=== PATIENT | male | born 1950 | race Caucasian/White ===

== ENCOUNTER → 2017-01-30 | Outpatient (CLI) | payer OTHER ==
[~2017-01-30] MED LIST: ASPIRINEC; CRESTOR; PLAVIX; TOPROL XL PO
--- NOTE | ~2017-01-30 | XA30 ---
[facility] A Service of [facility] & [facility] RADIOLOGY TEXT RESULTS PATIENT: BEN THOMPSON LOCATION: CIVR : 54 UNIT #: [id number] AGE: [address]: Anthony Carey MD SEX: M ORDER DR: [id number] [id number] [facility]. [place], [place] [address] [id number] O MR#: [id number] Acc #: [id number] NAME: BEN THOMPSON : 1950 SEX: M STUDY DATE/TIME: 01/30/2017 13:01 UNIT: [facility] ROOM: STUDY DESCRIPTION: XA Arthrocentesis Major Joint Attending Physician: Anthony Carey M.D. Referring Physician: Anthony Carey M.D. Ordering Physician: Anthony Carey M.D. Primary Care Physician: Nicolás Birmingham M.D. MEDICAL IMAGING REPORT This report is preliminary unless electronic signature is present EXAM Fluoroscopically-guided bilateral hip injections. INDICATION Bilateral hip pain. FINDINGS The procedure, risks, benefits, and alternatives to the procedure were explained patient, and signed, informed consent was obtained. He was placed supine on the angiographic table. He was prepped and draped in the usual sterile fashion. Time-out was performed as per protocol. Skin and subcutaneous tissues were anesthetized with buffered lidocaine and a 22-gauge spinal needle was advanced into the joint space. Contrast was injected which confirmed location within the joint space and I instilled a combination of lidocaine, bupivacaine and Depo-Medrol. The needle was then removed and manual pressure was applied until hemostasis was obtained. The patient had no issues with numbness in the right lower extremity. Subsequently, he was placed again supine on the angiographic table and prepped and draped in the usual sterile fashion. Skin and subcutaneous tissues of the left hip were anesthetized with buffered lidocaine and a 22-gauge spinal was advanced into the joint space. Contrast was injected which confirmed location within the joint space and I instilled a combination of lidocaine, bupivacaine and Depo-Medrol. Total fluoroscopy time for both procedures was 0.7 minutes and a total of 2 fluoroscopic images were obtained. IMPRESSION Technically successful fluoroscopically-guided bilateral hip injection as noted above. Fluoroscopy was used during the procedure and permanent images were saved. Dictated by... Jeny Cedeño M.D. [facility] A Service of [facility] RADIOLOGY TEXT RESULTS PATIENT: BEN THOMPSON LOCATION: [facility] #: [id number] : 54 UNIT #: [id number] AGE: [address]: Anthony Carey MD SEX: M ORDER DR: THIS IS AN ELECTRONICALLY VERIFIED REPORT Jeny Cedeño M.D. at 02/01/2017 12:41 PM AFF/bd TD: 01/31/2017 14:05 JOB #: [id number] MEDICAL IMAGING REPORT Page 1 of 1 COPY
== END | disposition home or self-care (01) ==
LOC: CIVR 12:27
DX: M25.552 Pain in left hip (principal); M25.551 Pain in right hip; M87.88 Other osteonecrosis, other site
CPT/HCPCS: 77002; J1030; Q9966

== ENCOUNTER → 2017-02-03 | Outpatient (CLI) | payer OTHER ==
--- NOTE | ~2017-02-03 | US128 ---
[id number] [facility] [address] [place], [place] [address] [id number] O MR#: [id number] Acc #: [id number] NAME: BEN THOMPSON : 1950 SEX: M STUDY DATE/TIME: 02/03/2017 15:11 UNIT: [facility] ROOM: STUDY DESCRIPTION: Thyroid Attending Physician: Emanuel Horowitz M.D. Referring Physician: Emanuel Horowitz M.D. Ordering Physician: Emanuel Horowitz M.D. Primary Care Physician: Nicolás Birmingham M.D. MEDICAL IMAGING REPORT This report is preliminary unless electronic signature is present EXAM Ultrasound thyroid gland INDICATIONS Right thyroid nodule. This has been present on exams dating back to June 2014. TECHNIQUE Tan-scale and color Doppler sonographic images were obtained through the thyroid gland. FINDINGS Right lobe of the thyroid gland measures 4.2 x 1.5 x 2.2 cm. Left lobe measures 3.8 x 13 x 1.5 cm. Isthmus measures about 4 mm thickness. Within the right lobe of the thyroid gland, there is a hypoechoic nodule which measures 6 x 5 x 6 mm. This has been present on exams dating back to June 2014 and appears unchanged. On most recent study, patient was noted to have a calcified nodule within the right lobe of the thyroid gland inferiorly, measuring up to 6 x 2 x 4 mm. This was actually present on today's study as well but was not measured as a discrete nodule. It is not significantly changed in size when compared to July. No new nodules are seen. IMPRESSION 1. Stable appearance to hypoechoic nodule seen within the superior pole of the right lobe the thyroid gland, unchanged since 2013 and felt to be benign. No new nodules are identified. There is a densely calcified structure identified within the inferior pole of the right lobe of the thyroid gland. This was not measured on today's study but can be seen and appears unchanged. Dictated by... Jeny Cedeño M.D. THIS IS AN ELECTRONICALLY VERIFIED REPORT Jeny Cedeño M.D. at 02/06/2017 3:41 PM AFF/pcl TD: 02/04/2017 21:40 JOB #: [id number] MEDICAL IMAGING REPORT Page 1 of 1 COPY
== END | disposition home or self-care (01) ==
LOC: CGUS 14:39
DX: E04.1 Nontoxic single thyroid nodule (principal)
CPT/HCPCS: 76536